=== PATIENT | male | born 1955 | race Caucasian/White ===

== ENCOUNTER 2023-10-06 00:54 | Inpatient (IN) | payer MEDICARE, BC ==
[2023-10-06] VITALS (30 sets, daily range): BP systolic 88–138; BP diastolic 41–71; PULSE 18–73; RESP 15–30; TEMP 97.6; O2SAT 95–100
[~2023-10-06] VITALS: Ht 182.9 cm; Wt 84.0 kg
[2023-10-06 01:19] LABS: BASOPHILS % (AUTO) 0.6 % (0-1); EOSINOPHILS # (AUTO) 0.1 X10'3 (0-0.9); EOSINOPHILS % (AUTO) 1.7 % (0-6); HEMATOCRIT 27.3 % (42.0-52.0); HEMOGLOBIN 8.6 g/dl (14.0-17.9); LYMPHOCYTES # (AUTO) 0.9 X10'3 (1.1-4.8); LYMPHOCYTES % (AUTO) 11.6 % (21-51); MEAN CORPUSCULAR HGB CONC 31.6 g/dL (33.0-36.5); MEAN CORPUSCULAR VOLUME 91.7 FL (78-98); MEAN PLATELET VOLUME 7.6 FL (7.4-10.4); MONOCYTES # (AUTO) 0.7 X10'3 (0-0.9); MONOCYTES % (AUTO) 8.5 % (2-12); NEUTROPHILS # (AUTO) 6.1 X10'3 (1.8-7.7); NEUTROPHILS % (AUTO) 77.6 % (42-75); PLATELET COUNT 349 X10'3 (140-440); RED BLOOD COUNT 2.98 X10'6 (4.70-6.10); RED CELL DISTRIBUTION WIDTH 18.4 % (11.5-14.5); WHITE BLOOD COUNT 7.8 X10'3 (4.5-11.0)
[2023-10-06 01:28] LABS: ALANINE AMINOTRANSFERASE 75 U/L (12-78); ALBUMIN 1.6 G/DL (3.4-5.0); ALBUMIN/GLOBULIN RATIO 0.4 (1.1-1.5); ALKALINE PHOSPHATASE 75 IU/L (46-116); ANION GAP 4 (8-16); ASPARTATE AMINO TRANSFERASE 53 U/L (10-37); BILIRUBIN,TOTAL 0.4 MG/DL (0.1-1.0); BLOOD UREA NITROGEN 41 MG/DL (7-18); BUN/CREATININE RATIO 68.3 (10.0-20.0); CALCIUM 8.5 MG/DL (8.5-10.1); CHLORIDE 108 MMOL/L (99-107); GLUCOSE 129 MG/DL (70-104); POTASSIUM 3.5 MMOL/L (3.5-5.1); SODIUM 143 MMOL/L (135-145); TOTAL CARBON DIOXIDE 30.7 MMOL/L (24-32); eCRCL 128 ML/MIN; eGFR > 90 ML/MIN
[2023-10-06 01:34] LABS: PRO BRAIN NATRIURETIC PEPTIDE 708 PG/ML (0-125)
[2023-10-06] MEDS: normal saline 1000ML IV soln IVB ONE (01:47)
[2023-10-06] MEDS ORDERED: vancomycin/NS 1 GM ADD-VANTAGE 250 ML IV ONE (02:05)
[2023-10-06 02:16] LABS: BILIRUBIN,URINE NEGATIVE (Neg); CLARITY,URINE CLOUDY (Clear); COLOR,URINE YELLOW (Yellow); GLUCOSE, URINE NEGATIVE (Neg); KETONES,URINE NEGATIVE (Neg); LEUKOCYTE ESTERASE ,URINE NEGATIVE (Neg); NITRITES, URINE NEGATIVE (Neg); OCCULT BLOOD,URINE NEGATIVE (Neg); PH,URINE 5.5 (4.8-8.0); PROTEIN,URINE TRACE mg/dl (Neg); UROBILINOGEN,URINE 0.2 E.U/dL (0.2-1.0)
[2023-10-06 02:19] LABS: UA COLLECTION TYPE FOLEY CATH
[2023-10-06] MEDS: CefTRIAXone/D5W-Rocephin 1gm 50 ML IV ONE (02:19)
[2023-10-06 02:20] LABS: MUCUS STRANDS MANY /LPF (Neg); SQUAMOUS EPITHELIAL CELL,UR FEW /LPF (FEW)
[2023-10-06 02:21] LABS: CAL OXALATE CRYSTALS 4+ /HPF (NEGATIVE)
[2023-10-06 02:22] LABS: BACTERIA,URINE 2+ /HPF (Neg); RENAL CELLS, URINE FEW /HPF; WBC,URINE 0-4 /HPF (0-4)
[2023-10-06] MEDS: NORepinephrine 8mg/ 250ml NS 250 ML IV SCH (02:23)
[2023-10-06 02:33] LABS: URIC ACID CRYSTALS 4+ /HPF (NEGATIVE)
[2023-10-06 02:37] LABS: TRANSITIONAL EPI CELLS,URINE FEW /HPF
[2023-10-06] MEDS: azithromycin/NS 500mg/250ml 250 ML IV ONE (02:52)
[2023-10-06] MEDS: normal saline 1000ml 1,000 ML IV ONE ×3 (02:53→17:25)
[2023-10-06] MEDS ORDERED: PHENYLephrine 10mg/ml inj. 50 MG in normal saline 250ml IV soln 245 ML IV PRN (03:15)
[2023-10-06] MEDS: DOPamine 400mg/D5W 250ml 250 ML IV SCH (03:21)
[2023-10-06 03:44] LABS: ABG BASE EXCESS 0.7 mmol/L (-2.0-2.0); ABG HCO3 25.5 mmol/L (22.0-26.0); ABG OXYGEN SATURATION 78.9 % (94-97); ABG PCO2 (T) 41.1 mmHg (35.0-48.0); ABG PH (T) 7.409 (7.340-7.440); ABG PO2 (T) 43.2 mmHg (75.0-100.0); ALLEN'S TEST Modified; FCOHb 0.3 % (0.0-3.9); FLOW 12 L/min; FO2Hb 78.7 % (94-97); MODE MASK - VENTI; PATIENT TEMPERATURE 36.6; TOTAL HEMOGLOBIN 9.4 G/dl (14.0-17.9)
[2023-10-06] MEDS: VANCOMYCIN 1,500MG in normal saline IV soln 300 ML IV ONE (04:20)
[2023-10-06] MEDS: pantoprazole 40MG/NS 100ML BAG 100 ML IV SCH (07:57)
[2023-10-06] MEDS: piperacillin/tazo 3.375gm/50ml 50 ML IV SCH (07:57)
[2023-10-06] MEDS: enoxaparin 40mg/0.4ml syringe SUBCUT SCH (07:58)
[2023-10-06] MEDS: vancomycin/NS 1 GM ADD-VANTAGE 250 ML X 1 DOSE IV SCH (12:00)
[2023-10-06 15:48] LABS: POTASSIUM 3.8 MMOL/L (3.5-5.1); PREALBUMIN 13.5 MG/DL (19-36)
[2023-10-06] MEDS: REMDESIVIR 200 MG in NS 100ml IVPB Loading dose IV ONE (16:26)
[2023-10-06] MEDS: midodrine 5mg tablet PO SCH (17:24)
[2023-10-06] MEDS: cefepime 2g/NS 100ml ADVANTAGE 100 ML IV SCH (20:00)
[2023-10-06] MEDS ORDERED: cefazolin 2gm/D5W 100mL 100 ML IV SCH (20:00)
[2023-10-07] VITALS (40 sets, daily range): BP systolic 69–157; BP diastolic 31–79; PULSE 29–81; RESP 9–30; O2SAT 63–100
[2023-10-07] MEDS: gabapentin 100mg capsule GT ONE (03:01)
[2023-10-07 03:09] LABS: BASOPHILS # (AUTO) 0.1 X10'3 (0-0.2); BASOPHILS % (AUTO) 0.6 % (0-1); EOSINOPHILS # (AUTO) 0.1 X10'3 (0-0.9); EOSINOPHILS % (AUTO) 0.9 % (0-6); HEMATOCRIT 27.6 % (42.0-52.0); HEMOGLOBIN 8.9 g/dl (14.0-17.9); LYMPHOCYTES # (AUTO) 0.7 X10'3 (1.1-4.8); LYMPHOCYTES % (AUTO) 8.4 % (21-51); MEAN CORPUSCULAR HEMOGLOBIN 28.9 PG (27.0-31.0); MEAN CORPUSCULAR HGB CONC 32.1 g/dL (33.0-36.5); MEAN CORPUSCULAR VOLUME 90.3 FL (78-98); MONOCYTES # (AUTO) 0.5 X10'3 (0-0.9); MONOCYTES % (AUTO) 6.4 % (2-12); NEUTROPHILS # (AUTO) 7.2 X10'3 (1.8-7.7); NEUTROPHILS % (AUTO) 83.7 % (42-75); PLATELET COUNT 410 X10'3 (140-440); RED BLOOD COUNT 3.06 X10'6 (4.70-6.10); RED CELL DISTRIBUTION WIDTH 17.8 % (11.5-14.5); WHITE BLOOD COUNT 8.6 X10'3 (4.5-11.0)
[2023-10-07 03:15] LABS: D-DIMER 1.47 MG/L FEU (0-0.50)
[2023-10-07 03:21] LABS: ALANINE AMINOTRANSFERASE 64 U/L (12-78); ALBUMIN 1.5 G/DL (3.4-5.0); ALBUMIN/GLOBULIN RATIO 0.4 (1.1-1.5); ALKALINE PHOSPHATASE 71 IU/L (46-116); ANION GAP 4 (8-16); ASPARTATE AMINO TRANSFERASE 41 U/L (10-37); BILIRUBIN,TOTAL 0.6 MG/DL (0.1-1.0); BLOOD UREA NITROGEN 27 MG/DL (7-18); BUN/CREATININE RATIO 57.4 (10.0-20.0); CALCIUM 8.2 MG/DL (8.5-10.1); CHLORIDE 113 MMOL/L (99-107); CREATININE 0.47 MG/DL (0.60-1.10); GLUCOSE 148 MG/DL (70-104); POTASSIUM 3.2 MMOL/L (3.5-5.1); SODIUM 145 MMOL/L (135-145); TOTAL CARBON DIOXIDE 27.8 MMOL/L (24-32); TOTAL PROTEIN 5.4 G/DL (6.4-8.2); eCRCL 167 ML/MIN; eGFR > 90 ML/MIN
[2023-10-07 03:23] LABS: VANCOMYCIN,TROUGH 15.9 ug/mL (10.0-20.0)
[2023-10-07 03:24] LABS: % IRON SATURATION 12 % (11-46); IRON 18 UG/DL (53-167); TOTAL IRON BINDING CAPACITY 156 UG/DL (259-388)
[2023-10-07 04:06] LABS: ABG BASE EXCESS -0.2 mmol/L (-2.0-2.0); ABG OXYGEN SATURATION 96.4 % (94-97); ABG PCO2 (T) 31.4 mmHg (35.0-48.0); ABG PH (T) 7.481 (7.340-7.440); ABG PO2 (T) 85.2 mmHg (75.0-100.0); ALLEN'S TEST Modified; FCOHb 0.3 % (0.0-3.9); FHHb 3.6 % (0.0-5.0); FMetHb 0.2 % (0.0-1.5); FO2Hb 95.9 % (94-97); MODE prvc; PATIENT TEMPERATURE 36.8; PEEP 5 cm H2O; RESPIRATORY RATE 12 b/min; TIDAL VOLUME 450 mL; TOTAL HEMOGLOBIN 8.7 G/dl (14.0-17.9)
[2023-10-07] MEDS ORDERED: magnesium 2GM in 50ml NS 50 ML IV PRN (04:55)
[2023-10-07] MEDS ORDERED: magnesium 4gm in 100ml NS 100 ML IV PRN (04:55)
[2023-10-07] MEDS: VANCOMYCIN LEVEL IV ONE (04:55)
[2023-10-07] MEDS: REMDESIVIR 100 MG in NS 100ml IVPB IV SCH (08:06)
[2023-10-07] MEDS ORDERED: ENOX40SY7 SUBCUT ×2 (09:17→12:27)
[2023-10-07] MEDS ORDERED: ESCI-8 PO (09:18)
[2023-10-07 09:37] LABS: MAGNESIUM 2.3 MG/DL (1.5-2.4)
[2023-10-07] MEDS ORDERED: LORA-269 PO (12:26)
[2023-10-07] MEDS ORDERED: ACET-2778 PO (12:26)
[2023-10-07] MEDS ORDERED: PANT40TA54 PO (12:26)
[2023-10-07] MEDS ORDERED: HYDR-3968 PO (12:26)
[2023-10-07] MEDS ORDERED: FOLI1TAB27 PO (12:26)
[2023-10-07] MEDS ORDERED: MELA1TAB28 PO (12:26)
[2023-10-07] MEDS ORDERED: POLY17PO59 PO (12:26)
[2023-10-07] MEDS ORDERED: MULT-1085 PO (12:26)
[2023-10-07] MEDS ORDERED: GABA300C PO (12:26)
[2023-10-07] MEDS ORDERED: THIA100T66 PO (12:26)
[2023-10-07] MEDS ORDERED: ONDA4AMP IV (12:26)
[2023-10-07] MEDS ORDERED: ALB0.5UD NEB (12:26)
[2023-10-07] MEDS ORDERED: ATR0.5NEB NEB (12:26)
[2023-10-07] MEDS ORDERED: MIDO5TAB4 PO (12:26)
[2023-10-07] MEDS: dexamethasone 4mg/ml inj IV SCH (12:31)
[2023-10-07] MEDS: acetylcysteine 200 MG/ml 4ml vial INH SCH (14:14)
[2023-10-07] MEDS: albuterol 2.5 MG/3 ML nebule NEB SCH (15:00)
[2023-10-07] MEDS: cefepime 2g/NS 100ml ADVANTAGE 100 ML IV SCH (16:05)
[2023-10-07] MEDS: gabapentin 100mg capsule GT SCH (21:00)
[2023-10-08] VITALS (45 sets, daily range): BP systolic 93–154; BP diastolic 47–81; PULSE 43–79; RESP 12–29; O2SAT 94–100
[2023-10-08 03:14] LABS: BASOPHILS # (AUTO) 0.1 X10'3 (0-0.2); BASOPHILS % (AUTO) 0.8 % (0-1); EOSINOPHILS % (AUTO) 0.1 % (0-6); HEMATOCRIT 34.4 % (42.0-52.0); HEMOGLOBIN 10.9 g/dl (14.0-17.9); LYMPHOCYTES # (AUTO) 0.8 X10'3 (1.1-4.8); LYMPHOCYTES % (AUTO) 8.2 % (21-51); MEAN CORPUSCULAR HEMOGLOBIN 28.2 PG (27.0-31.0); MEAN CORPUSCULAR HGB CONC 31.8 g/dL (33.0-36.5); MEAN CORPUSCULAR VOLUME 88.8 FL (78-98); MEAN PLATELET VOLUME 6.4 FL (7.4-10.4); MONOCYTES # (AUTO) 0.6 X10'3 (0-0.9); MONOCYTES % (AUTO) 6.2 % (2-12); NEUTROPHILS # (AUTO) 8.4 X10'3 (1.8-7.7); NEUTROPHILS % (AUTO) 84.7 % (42-75); PLATELET COUNT 472 X10'3 (140-440); RED BLOOD COUNT 3.87 X10'6 (4.70-6.10); RED CELL DISTRIBUTION WIDTH 17.8 % (11.5-14.5); WHITE BLOOD COUNT 9.9 X10'3 (4.5-11.0)
[2023-10-08 03:33] LABS: ABG BASE EXCESS 2.7 mmol/L (-2.0-2.0); ABG HCO3 25.5 mmol/L (22.0-26.0); ABG PCO2 (T) 32.3 mmHg (35.0-48.0); ABG PH (T) 7.514 (7.340-7.440); ABG PO2 (T) 81.9 mmHg (75.0-100.0); FCOHb 0.1 % (0.0-3.9); FMetHb 0.3 % (0.0-1.5); FO2Hb 96.6 % (94-97); MODE VENT - CPAP; PATIENT TEMPERATURE 36.5; PEEP 5 cm H2O; TOTAL HEMOGLOBIN 11.3 G/dl (14.0-17.9)
[2023-10-08 03:38] LABS: ALANINE AMINOTRANSFERASE 71 U/L (12-78); ALBUMIN 1.9 G/DL (3.4-5.0); ALBUMIN/GLOBULIN RATIO 0.4 (1.1-1.5); ALKALINE PHOSPHATASE 84 IU/L (46-116); ANION GAP 7 (8-16); ASPARTATE AMINO TRANSFERASE 36 U/L (10-37); BILIRUBIN,TOTAL 0.6 MG/DL (0.1-1.0); BLOOD UREA NITROGEN 23 MG/DL (7-18); BUN/CREATININE RATIO 47.9 (10.0-20.0); CALCIUM 8.4 MG/DL (8.5-10.1); CHLORIDE 109 MMOL/L (99-107); CREATININE 0.48 MG/DL (0.60-1.10); GLUCOSE 132 MG/DL (70-104); POTASSIUM 3.7 MMOL/L (3.5-5.1); SODIUM 143 MMOL/L (135-145); TOTAL CARBON DIOXIDE 27.3 MMOL/L (24-32); TOTAL PROTEIN 6.6 G/DL (6.4-8.2); eCRCL 164 ML/MIN; eGFR > 90 ML/MIN
[2023-10-08] MEDS: thiamine 100mg tablet PEG SCH (08:54)
[2023-10-08] MEDS: MULTIVIT-MIN/FERROUS GLUCONATE 9 MG/15 ML LIQUID PEG SCH (08:54)
[2023-10-08] MEDS: folic acid 1mg tablet PEG SCH (08:54)
[2023-10-08] MEDS ORDERED: meclizine 12.5mg tablet PO PRN (12:40)
[2023-10-08] MEDS: BARICITINIB 2 MG TABLET PO SCH (13:37)
[2023-10-09] VITALS (43 sets, daily range): BP systolic 85–145; BP diastolic 38–77; PULSE 42–60; RESP 11–25; O2SAT 91–100
[2023-10-09 02:35] LABS: BASOPHILS % (AUTO) 0.3 % (0-1); EOSINOPHILS % (AUTO) 0 % (0-6); HEMATOCRIT 27.6 % (42.0-52.0); HEMOGLOBIN 8.6 g/dl (14.0-17.9); LYMPHOCYTES # (AUTO) 0.8 X10'3 (1.1-4.8); LYMPHOCYTES % (AUTO) 7.3 % (21-51); MEAN CORPUSCULAR HEMOGLOBIN 27.9 PG (27.0-31.0); MEAN CORPUSCULAR HGB CONC 31.1 g/dL (33.0-36.5); MEAN CORPUSCULAR VOLUME 89.6 FL (78-98); MEAN PLATELET VOLUME 6.6 FL (7.4-10.4); MONOCYTES # (AUTO) 0.6 X10'3 (0-0.9); NEUTROPHILS # (AUTO) 9.9 X10'3 (1.8-7.7); NEUTROPHILS % (AUTO) 87.4 % (42-75); PLATELET COUNT 360 X10'3 (140-440); RED BLOOD COUNT 3.08 X10'6 (4.70-6.10); RED CELL DISTRIBUTION WIDTH 18.1 % (11.5-14.5); WHITE BLOOD COUNT 11.3 X10'3 (4.5-11.0)
[2023-10-09 02:52] LABS: ALANINE AMINOTRANSFERASE 49 U/L (12-78); ALBUMIN 1.7 G/DL (3.4-5.0); ALBUMIN/GLOBULIN RATIO 0.4 (1.1-1.5); ALKALINE PHOSPHATASE 67 IU/L (46-116); ANION GAP 3 (8-16); ASPARTATE AMINO TRANSFERASE 22 U/L (10-37); BILIRUBIN,TOTAL 0.3 MG/DL (0.1-1.0); BLOOD UREA NITROGEN 31 MG/DL (7-18); BUN/CREATININE RATIO 77.5 (10.0-20.0); CALCIUM 8.1 MG/DL (8.5-10.1); CHLORIDE 109 MMOL/L (99-107); GLUCOSE 135 MG/DL (70-104); POTASSIUM 3.6 MMOL/L (3.5-5.1); SODIUM 142 MMOL/L (135-145); TOTAL PROTEIN 5.5 G/DL (6.4-8.2); eCRCL 197 ML/MIN; eGFR > 90 ML/MIN
[2023-10-09 03:36] LABS: ABG BASE EXCESS 1.9 mmol/L (-2.0-2.0); ABG HCO3 26.2 mmol/L (22.0-26.0); ABG OXYGEN SATURATION 95.7 % (94-97); ABG PCO2 (T) 38.9 mmHg (35.0-48.0); ABG PH (T) 7.443 (7.340-7.440); ABG PO2 (T) 79.4 mmHg (75.0-100.0); FCOHb 0.3 % (0.0-3.9); FHHb 4.3 % (0.0-5.0); FMetHb 0.3 % (0.0-1.5); FO2Hb 95.1 % (94-97); MODE VENT - CPAP; PATIENT TEMPERATURE 36.5; PEEP 5 cm H2O; TOTAL HEMOGLOBIN 9.6 G/dl (14.0-17.9)
[2023-10-09] MEDS ORDERED: fluconazole-Diflucan 200mg/NS 100 ML IV SCH (08:45)
[2023-10-09] MEDS: atropine 0.1mg/ml 10ml syringe ONE (10:24)
[2023-10-09] MEDS ORDERED: midazolam 1 mg/ML 2ml injection ONE (18:35)
[2023-10-09] MEDS ORDERED: LIDOcaine 1% 30ml preserv. free vial ONE (18:35)
[2023-10-09] MEDS ORDERED: ceFAZolin 1000mg inj ONE (18:36)
[2023-10-09] MEDS ORDERED: fentaNYL/PF 50MCG/1 ML 2ML syringe ONE (18:37)
[2023-10-09] MEDS ORDERED: LIDOCAINE 2%/EPI 1:100,000 inj. Multi-dose 20 ML VIAL ONE ×2 (19:29→19:32)
[2023-10-09] MEDS ORDERED: iohexol 350 MG/ML 50ML vial IV ONE ×2 (19:52)
[2023-10-10] VITALS (39 sets, daily range): BP systolic 73–133; BP diastolic 34–61; PULSE 60–68; RESP 11–34; O2SAT 87–98
[2023-10-10] MEDS: Melatonin 3mg tablet PO ONE
[2023-10-10] MEDS: sulfamethoxazole/trimethoprim DS (800/160mg) tablet PO SCH (00:03)
[2023-10-10 02:47] LABS: BASOPHILS % (AUTO) 0.6 % (0-1); EOSINOPHILS % (AUTO) 0.1 % (0-6); HEMATOCRIT 26.2 % (42.0-52.0); HEMOGLOBIN 8.3 g/dl (14.0-17.9); LYMPHOCYTES # (AUTO) 0.6 X10'3 (1.1-4.8); LYMPHOCYTES % (AUTO) 7.2 % (21-51); MEAN CORPUSCULAR HEMOGLOBIN 28.5 PG (27.0-31.0); MEAN CORPUSCULAR HGB CONC 31.6 g/dL (33.0-36.5); MEAN CORPUSCULAR VOLUME 90.2 FL (78-98); MEAN PLATELET VOLUME 6.9 FL (7.4-10.4); MONOCYTES # (AUTO) 0.3 X10'3 (0-0.9); MONOCYTES % (AUTO) 3.7 % (2-12); NEUTROPHILS # (AUTO) 6.9 X10'3 (1.8-7.7); NEUTROPHILS % (AUTO) 88.4 % (42-75); PLATELET COUNT 344 X10'3 (140-440); RED BLOOD COUNT 2.91 X10'6 (4.70-6.10); RED CELL DISTRIBUTION WIDTH 17.8 % (11.5-14.5); WHITE BLOOD COUNT 7.8 X10'3 (4.5-11.0)
[2023-10-10 02:59] LABS: ALANINE AMINOTRANSFERASE 40 U/L (12-78); ALBUMIN 1.7 G/DL (3.4-5.0); ALBUMIN/GLOBULIN RATIO 0.5 (1.1-1.5); ALKALINE PHOSPHATASE 61 IU/L (46-116); ANION GAP 3 (8-16); ASPARTATE AMINO TRANSFERASE 17 U/L (10-37); BILIRUBIN,TOTAL 0.4 MG/DL (0.1-1.0); BLOOD UREA NITROGEN 28 MG/DL (7-18); BUN/CREATININE RATIO 73.7 (10.0-20.0); CHLORIDE 106 MMOL/L (99-107); CREATININE 0.38 MG/DL (0.60-1.10); GLUCOSE 143 MG/DL (70-104); POTASSIUM 3.4 MMOL/L (3.5-5.1); PREALBUMIN 13.3 MG/DL (19-36); SODIUM 139 MMOL/L (135-145); TOTAL CARBON DIOXIDE 30.2 MMOL/L (24-32); TOTAL PROTEIN 5.3 G/DL (6.4-8.2); eCRCL 207 ML/MIN; eGFR > 90 ML/MIN
[2023-10-10 03:33] LABS: ABG BASE EXCESS 2.9 mmol/L (-2.0-2.0); ABG HCO3 27.6 mmol/L (22.0-26.0); ABG OXYGEN SATURATION 95.9 % (94-97); ABG PCO2 (T) 42.9 mmHg (35.0-48.0); ABG PH (T) 7.426 (7.340-7.440); ABG PO2 (T) 80.9 mmHg (75.0-100.0); FCOHb 0.3 % (0.0-3.9); FHHb 4.1 % (0.0-5.0); FMetHb 0.1 % (0.0-1.5); FO2Hb 95.5 % (94-97); MODE VENT - CPAP; PEEP 5 cm H2O; TOTAL HEMOGLOBIN 9.3 G/dl (14.0-17.9)
[2023-10-10] MEDS: HYDROcodone/acetaminophen 7.5MG/325MG per 15ml UD CUP PEG PRN ×2 (04:12→08:22)
[2023-10-10] MEDS: potassium Cl 40MEQ/270ML bag 270 ML IV PRN (08:13)
[2023-10-10] MEDS: Melatonin 3mg tablet PO SCH (21:18)
[2023-10-11] VITALS (43 sets, daily range): BP systolic 98–131; BP diastolic 46–68; PULSE 60–63; RESP 16–37; O2SAT 91–99
[2023-10-11 03:08] LABS: BASOPHILS # (AUTO) 0.1 X10'3 (0-0.2); EOSINOPHILS # (AUTO) 0.1 X10'3 (0-0.9); EOSINOPHILS % (AUTO) 1.3 % (0-6); HEMATOCRIT 25.2 % (42.0-52.0); LYMPHOCYTES # (AUTO) 0.6 X10'3 (1.1-4.8); LYMPHOCYTES % (AUTO) 6.2 % (21-51); MEAN CORPUSCULAR HEMOGLOBIN 28.8 PG (27.0-31.0); MEAN CORPUSCULAR HGB CONC 31.6 g/dL (33.0-36.5); MEAN CORPUSCULAR VOLUME 91.2 FL (78-98); MONOCYTES # (AUTO) 0.5 X10'3 (0-0.9); MONOCYTES % (AUTO) 4.8 % (2-12); NEUTROPHILS # (AUTO) 8.8 X10'3 (1.8-7.7); NEUTROPHILS % (AUTO) 86.7 % (42-75); PLATELET COUNT 306 X10'3 (140-440); RED BLOOD COUNT 2.76 X10'6 (4.70-6.10); RED CELL DISTRIBUTION WIDTH 18.5 % (11.5-14.5); WHITE BLOOD COUNT 10.2 X10'3 (4.5-11.0)
[2023-10-11 03:29] LABS: ALANINE AMINOTRANSFERASE 39 U/L (12-78); ALBUMIN 1.8 G/DL (3.4-5.0); ALBUMIN/GLOBULIN RATIO 0.5 (1.1-1.5); ALKALINE PHOSPHATASE 67 IU/L (46-116); ANION GAP 4 (8-16); ASPARTATE AMINO TRANSFERASE 21 U/L (10-37); BILIRUBIN,TOTAL 0.3 MG/DL (0.1-1.0); BLOOD UREA NITROGEN 31 MG/DL (7-18); BUN/CREATININE RATIO 57.4 (10.0-20.0); CALCIUM 8.1 MG/DL (8.5-10.1); CHLORIDE 107 MMOL/L (99-107); CREATININE 0.54 MG/DL (0.60-1.10); GLUCOSE 105 MG/DL (70-104); POTASSIUM 4.3 MMOL/L (3.5-5.1); SODIUM 140 MMOL/L (135-145); TOTAL CARBON DIOXIDE 29.3 MMOL/L (24-32); TOTAL PROTEIN 5.5 G/DL (6.4-8.2); eCRCL 146 ML/MIN; eGFR > 90 ML/MIN
[2023-10-11 03:59] LABS: ABG BASE EXCESS 3.4 mmol/L (-2.0-2.0); ABG HCO3 27.7 mmol/L (22.0-26.0); ABG OXYGEN SATURATION 92.6 % (94-97); ABG PCO2 (T) 39.3 mmHg (35.0-48.0); ABG PH (T) 7.463 (7.340-7.440); ABG PO2 (T) 57.9 mmHg (75.0-100.0); FCOHb 0.2 % (0.0-3.9); FHHb 7.4 % (0.0-5.0); FMetHb 0.3 % (0.0-1.5); FO2Hb 92.1 % (94-97); MODE ac/prvc; PATIENT TEMPERATURE 36.1; PEEP 5 cm H2O; RESPIRATORY RATE 12 b/min; TIDAL VOLUME 450 mL; TOTAL HEMOGLOBIN 8.9 G/dl (14.0-17.9)
[2023-10-11] MEDS ORDERED: midodrine 5mg tablet PO SCH (07:45)
[2023-10-11] MEDS: acetylcysteine 200 MG/ml 4ml vial INH SCH (10:09)
[2023-10-11] MEDS: midodrine 5mg tablet PO SCH (17:42)
[2023-10-12] VITALS (39 sets, daily range): BP systolic 99–162; BP diastolic 51–77; PULSE 60; RESP 14–26; O2SAT 90–100
[2023-10-12 03:11] LABS: BASOPHILS % (AUTO) 0.3 % (0-1); EOSINOPHILS # (AUTO) 0.1 X10'3 (0-0.9); EOSINOPHILS % (AUTO) 0.6 % (0-6); HEMATOCRIT 23.4 % (42.0-52.0); HEMOGLOBIN 7.2 g/dl (14.0-17.9); LYMPHOCYTES # (AUTO) 0.5 X10'3 (1.1-4.8); LYMPHOCYTES % (AUTO) 4.9 % (21-51); MEAN CORPUSCULAR HEMOGLOBIN 28.6 PG (27.0-31.0); MEAN CORPUSCULAR HGB CONC 30.9 g/dL (33.0-36.5); MEAN CORPUSCULAR VOLUME 92.5 FL (78-98); MEAN PLATELET VOLUME 7.3 FL (7.4-10.4); MONOCYTES # (AUTO) 0.6 X10'3 (0-0.9); MONOCYTES % (AUTO) 5.6 % (2-12); NEUTROPHILS # (AUTO) 9.7 X10'3 (1.8-7.7); NEUTROPHILS % (AUTO) 88.6 % (42-75); PLATELET COUNT 273 X10'3 (140-440); RED BLOOD COUNT 2.53 X10'6 (4.70-6.10); RED CELL DISTRIBUTION WIDTH 18.5 % (11.5-14.5); WHITE BLOOD COUNT 10.9 X10'3 (4.5-11.0)
[2023-10-12 03:25] LABS: ALANINE AMINOTRANSFERASE 33 U/L (12-78); ALBUMIN 1.6 G/DL (3.4-5.0); ALBUMIN/GLOBULIN RATIO 0.4 (1.1-1.5); ALKALINE PHOSPHATASE 63 IU/L (46-116); ANION GAP 2 (8-16); ASPARTATE AMINO TRANSFERASE 17 U/L (10-37); BILIRUBIN,TOTAL 0.2 MG/DL (0.1-1.0); BLOOD UREA NITROGEN 37 MG/DL (7-18); BUN/CREATININE RATIO 55.2 (10.0-20.0); CALCIUM 8.5 MG/DL (8.5-10.1); CHLORIDE 104 MMOL/L (99-107); CREATININE 0.67 MG/DL (0.60-1.10); GLUCOSE 111 MG/DL (70-104); MAGNESIUM 2.1 MG/DL (1.5-2.4); PHOSPHORUS 4.3 MG/DL (2.3-4.5); POTASSIUM 4.7 MMOL/L (3.5-5.1); SODIUM 137 MMOL/L (135-145); TOTAL PROTEIN 5.5 G/DL (6.4-8.2); eCRCL 117 ML/MIN; eGFR > 90 ML/MIN
[2023-10-12 04:04] LABS: ABG BASE EXCESS 2.6 mmol/L (-2.0-2.0); ABG HCO3 29.9 mmol/L (22.0-26.0); ABG OXYGEN SATURATION 98.7 % (94-97); ABG PCO2 (T) 62.7 mmHg (35.0-48.0); ABG PH (T) 7.293 (7.340-7.440); ABG PO2 (T) 130.6 mmHg (75.0-100.0); FCOHb 0.4 % (0.0-3.9); FHHb 1.3 % (0.0-5.0); FO2Hb 98.3 % (94-97); MODE VENT - CPAP; PATIENT TEMPERATURE 36.4; PEEP 10 cm H2O; TOTAL HEMOGLOBIN 8.1 G/dl (14.0-17.9)
[2023-10-12] MEDS: fludrocortisone acetate 0.1mg tablet PO SCH (09:07)
== END 2023-10-12 21:15 | DRG 853 ==
LOC: ER 00:56 → ED HOLD 03:09 → CICU 2S 04:47
PROVIDERS: ADMIT Surgery Surgical Critical Care; ATTEND Surgery Surgical Critical Care
PROC: 5A1955Z Respiratory Ventilation, Greater than 96 Consecutive Hours (ICD-10-PCS; principal; 2023-10-06)
PROC: 0JH606Z Insertion of Pacemaker, Dual Chamber into Chest Subcutaneous Tissue and Fascia, Open Approach (ICD-10-PCS; 2023-10-09)
PROC: 02H63JZ Insertion of Pacemaker Lead into Right Atrium, Percutaneous Approach (ICD-10-PCS; 2023-10-09)
PROC: 02HK3JZ Insertion of Pacemaker Lead into Right Ventricle, Percutaneous Approach (ICD-10-PCS; 2023-10-09)
PROC: XW033E5 Introduction of Remdesivir Anti-infective into Peripheral Vein, Percutaneous Approach, New Technology Group 5 (ICD-10-PCS; 2023-10-09)
DX: A41.9 Sepsis, unspecified organism (principal); E43 Unspecified severe protein-calorie malnutrition; U07.1 COVID-19; J96.01 Acute respiratory failure with hypoxia; R65.21 Severe sepsis with septic shock; G82.50 Quadriplegia, unspecified; I46.9 Cardiac arrest, cause unspecified; J15.9 Unspecified bacterial pneumonia; J96.21 Acute and chronic respiratory failure with hypoxia; R57.8 Other shock; K59.2 Neurogenic bowel, not elsewhere classified; I44.2 Atrioventricular block, complete; R00.1 Bradycardia, unspecified; Z68.25 Body mass index [BMI] 25.0-25.9, adult; D64.9 Anemia, unspecified; N31.9 Neuromuscular dysfunction of bladder, unspecified; Z88.1 Allergy status to other antibiotic agents; Z93.0 Tracheostomy status; Z93.1 Gastrostomy status; Z95.0 Presence of cardiac pacemaker
CPT/HCPCS: 33208; 36415; 36600; 71045; 80053; 80202; 81001; 82803; 82948; 83540; 83550; 83605; 83735; 83880; 84100; 84132; 84134; 84145; 84484; 85018; 85025; 85379; 87040; 87070; 87077; 87081; 87186; 87502; 87503; 87634; 93005; 93306; 94003; 94640; 94760; 94799; 99152; 99153; 99285; A4314; A4565; A4624; A4649; A6212; A6213; A6250; A6258; A6449; C1785; C1898; C9113; G0378; J0456; J0461; J0690; J0692; J0696; J1100; J1265; J1650; J2250; J2543; J3010; J3370; J3480; J3490; J7030; J7040; J7042; Q9967